=== PATIENT | female | born 1990 | race Hispanic/Latino ===

== ENCOUNTER 2017-06-06 09:18 | Outpatient (CLI) | payer OTHER ==
--- NOTE | 2017-06-06 13:06 | ULT ---
OB ULTRASOUND: History: Low lying placenta on previous exam of 03-21-17. FINDINGS: A single intrauterine gestation is noted with an estimated gestational age of 30 weeks 3 days and es timated delivery date of 08-12-17. Estimated weight measures 1524 grams (3.6 ounces). Cervical length measures 4.23 cm. heart rate measures 144 bpm. ====== measures 19.2 cm. measurements as follows: BPD 7.21 cm 29 weeks 0 days HC 28.29 cm 31 weeks 0 days AC 25.97 cm 30 weeks 1 days FL 5.79 cm 30 weeks 2 days Placenta is posterior without evidence of placenta previa. presentation is vertex. IMPRESSION: 1. Single live IUP of 30 weeks 3 days estimated gestational age and LEDY of 08-12-17. 2. No evidence of placenta previa. POS: [facility]
== END 2017-06-06 09:19 | disposition home or self-care (01) ==
LOC: ULT 09:18
PROVIDERS: ATTEND Family Medicine
DX: O44.42 Low lying placenta NOS or without hemorrhage, second trimester (principal); Z3A.30 30 weeks gestation of pregnancy
CPT/HCPCS: 76816

== ENCOUNTER 2017-08-07 05:47 | Inpatient (IN) | payer MEDICAID, OTHER, SELFPAY ==
[2017-08-07] MEDS ORDERED: Ondansetron HCl/PF 4 MG/2 ML Vial IVP PRN ×3 (06:49→13:11)
[2017-08-07] MEDS ORDERED: Ibuprofen 800 MG TAB PO PRN (06:49)
[2017-08-07] MEDS ORDERED: HYDROcodone/Acetaminophen 5/325 mg Tablet PO PRN ×2 (06:49)
[2017-08-07] MEDS ORDERED: Lidocaine 1% (PF) 30 ML VIAL SC PRN (06:49)
[2017-08-07] MEDS ORDERED: Lidocaine 1% (PF) 30 ML VIAL ONE (06:59)
[2017-08-07] MEDS ORDERED: Lactated Ringer's 1,000 ML IV SCH (07:00)
[2017-08-07] MEDS: Lactated Ringer's 1,000 ML IV SCH ×2 (07:10→07:58)
[2017-08-07 07:22] LABS: Hematocrit 41.1 % (36.0-47.0); Red Blood Cell (RBC) Count 3.99 mill/uL (4.20-5.40)
[2017-08-07] MEDS ORDERED: Fentanyl 4 mcg/Marc 0.1% Cadd 100 ML ONE (07:26)
[2017-08-07] MEDS ORDERED: Promethazine HCl 25 MG/ML VIAL IM PRN (08:08)
[2017-08-07] MEDS ORDERED: Lactated Ringer's 500 ML IV PRN (08:08)
[2017-08-07] MEDS ORDERED: Eucerin (Mineral Oil/Petrolatum,White) 30 gm Jar TOP PRN (08:08)
[2017-08-07] MEDS ORDERED: Naloxone HCl 0.4 mg/ml Vial IVP PRN ×2 (08:08)
[2017-08-07] MEDS ORDERED: diphenhydrAMINE 50 MG/ML VIAL IVP PRN (08:08)
[2017-08-07] MEDS ORDERED: ePHEDrine/0.9% NaCl/PF SYRINGE 50 mg/10 ml SLOW IVP PRN (08:08)
[2017-08-07] MEDS ORDERED: Acetaminophen 325 MG TAB PO PRN (08:08)
[2017-08-07] MEDS ORDERED: Communication Order-Pharmacy FS SCH (08:15)
[2017-08-07] MEDS ORDERED: Fentanyl 4mcg/Marcaine 0.1% Cassette 100 ML EPIDURAL SCH (08:15)
[2017-08-07 08:50] VITALS: BMI 30.8
[2017-08-07] MEDS: LR / Pitocin 40 units/1000 ml 1,000 ML IV PRN ×2 (11:22→13:05)
--- NOTE | 2017-08-07 11:33 | PDOC.OPDEL ---
OB Operative/Delivery Note Delivery Dr/Surgeon: [facility] for [facility] Pre-Delivery Diagnosis: active labor Procedure/Post Delivery Dx: spontaneous vaginal delivery Weeks gestation: 38 Anesthesia: epidural - Findings A Sex: male Weight: 0 oz (pend) - 1 min: 9 - 5 min: 9 - Additional Findings/Plan Placenta delivered: spontaneous Repaired Obstetrical Laceration: none Estimated blood loss: 250 Post delivery plan: routine recovery
[2017-08-07] MEDS ORDERED: Acetaminophen/Codeine 30-300mg Tablet PO PRN (13:11)
[2017-08-07] MEDS ORDERED: Bisacodyl 10 MG SUPP PR PRN (13:11)
[2017-08-07] MEDS ORDERED: Milk Of Magnesia 30 ML UDCUP PO PRN (13:11)
[2017-08-07] MEDS ORDERED: Zolpidem Tartrate 5 MG TAB PO PRN (13:11)
[2017-08-07] MEDS ORDERED: diphenhydrAMINE 25 MG CAP PO PRN (13:11)
[2017-08-07] MEDS ORDERED: Lanolin Ointment 7 GM TUBE TOP PRN (13:11)
[2017-08-07] MEDS ORDERED: LR / Pitocin 40 units/1000 ml 1,000 ML IV SCH (13:11)
[2017-08-07] MEDS ORDERED: Preparation H Ointment 28 GM TUBE PR PRN (13:11)
[2017-08-07] MEDS: Ibuprofen 800 MG TAB PO SCH ×2 (14:34→21:42)
[2017-08-07] MEDS: Docusate (Surfak) 240 MG CAP PO SCH (21:42)
[2017-08-07] MEDS ORDERED: Bupivacaine HCl 0.5%/Epinephrine 1:200,000/PF 30 ml Vial ONE (22:21)
[2017-08-08] MEDS: Ibuprofen 800 MG TAB PO SCH ×2 (06:11→13:17)
--- NOTE | 2017-08-08 07:17 | PDOC.PP ---
Post Progress Note Post Day #: 1 PO intake tolerated: yes Flatus: yes Ambulation: yes Vital Signs (12 hours) Temp Pulse Resp BP 08/08/17 05:15 97.9 F 67 20 99/56 L 08/07/17 23:55 97.7 F 73 18 90/52 L 08/07/17 19:35 98.1 F 79 20 107/67 Weight Weight 163 lb - Physical Examination General: NAD Cardiovascular: no m/r/g, RRR Respiratory: clear to auscultation bilaterally, non-labored breathing Abdominal: + bowel sounds, lochia, no distention Extremities: negative homans (B) Neurological: no gross focal deficits Psychiatric: A&Ox3, normal affect Result Diagrams: 08/07/17 07:10 Additional Labs: Post Labs Hep Bs Antigen Non-Reactive S/CO (NonReactive) 08/07/17 07:10 - Assessment/Plan doing well wants circ. will dc post 1500 today
[2017-08-08 07:54] VITALS: BP 102/59; TEMP 98.2
[2017-08-08] MEDS: Docusate (Surfak) 240 MG CAP PO SCH (07:55)
[2017-08-08] MEDS ORDERED: Adacel (T-DAP) 0.5 ML VIAL IM ONE (09:00)
[2017-08-08] MEDS ORDERED: Prenatal Vitamin 1 TAB PO SCH (09:00)
== END 2017-08-08 14:19 | disposition home or self-care (01) | DRG 775 ==
LOC: L&D/OP 05:47 → L&D 07:01 → 3SW 13:49
PROVIDERS: ADMIT Obstetrics & Gynecology; ATTEND Obstetrics & Gynecology
PROC: 10E0XZZ Delivery of Products of Conception, External Approach (ICD-10-PCS; principal; 2017-08-07)
PROC: 10907ZC Drainage of Amniotic Fluid, Therapeutic from Products of Conception, Via Natural or Artificial Opening (ICD-10-PCS; 2017-08-07)
DX: O80 Encounter for full-term uncomplicated delivery (principal); Z37.0 Single live birth; Z3A.38 38 weeks gestation of pregnancy
CPT/HCPCS: 51702; 85027; 86780; 87340; 90715; 99285; J0670; J2001; J2405